=== PATIENT | female | born 1945 | race Hispanic/Latino ===

== ENCOUNTER 2020-08-03 12:23 | Inpatient (IN) | payer MEDICARE ==
[2020-08-03] VITALS (34 sets, daily range): BP systolic 92–125; BP diastolic 45–80
[~2020-08-03] VITALS: Ht 160 cm; Wt 104.0 kg
[2020-08-03 13:02] LABS: BASOPHILS % (AUTO) 0.2 % (0.0-5.0); EOSINOPHILS % (AUTO) 0.1 % (0.0-8.0); HEMATOCRIT 28.9 % (36-48); LYMPHOCYTES % (AUTO) 8.8 % (21.0-51.0); MEAN CORPUSCULAR HEMOGLOBIN 30.9 pg (27.0-33.0); MEAN CORPUSCULAR HGB CONC 31.8 g/dL (32.0-36.0); MONOCYTES % (AUTO) 7.9 % (3.0-13.0); NEUTROPHILS % (AUTO) 75.4 % (40.0-77.0); NUCLEATED RED BLOOD CELLS 1.7 % (0.0-0.19); PLATELET COUNT (AUTO) 150 K/uL (130-400); RED BLOOD CELL COUNT(AUTO) 2.98 MIL/uL (4.00-5.50); RED CELL DISTRIBUTION WIDTH 15.7 % (11.0-15.5); WHITE BLOOD COUNT (AUTO) 8.6 K/uL (4.8-10.8)
[2020-08-03 13:14] LABS: INR 1.17 (0.85-1.15); PROTHROMBIN TIME 12.3 SEC (9.6-11.6)
[2020-08-03 13:16] LABS: PARTIAL THROMBOPLASTIN TIME 27.8 SEC (26.3-35.5)
[2020-08-03 13:25] LABS: ALBUMIN 3.8 g/dL (3.5-5.0); BILIRUBIN,TOTAL 1.3 mg/dL (0.2-1.0); CREATININE 4.4 mg/dL (0.5-1.5); CRP QUANTITATIVE 44.8 mg/L (0.00-9.0); POTASSIUM 5.7 mmol/L (3.5-5.1); TOTAL PROTEIN, SERUM 6.9 g/dL (6.0-8.3); TROPONIN I 0.34 ng/mL (0.00-0.06)
[2020-08-03 13:41] LABS: B-TYPE NATRIURETIC PEPTIDE 862 pg/mL (0-100)
[2020-08-03] MEDS ORDERED: ONDANSETRON 4MG INJ ONE (14:02)
[2020-08-03] MEDS ORDERED: ZOSYN 3.375GM+NS 50ML 50 ML IV ONE (14:03)
[2020-08-03] MEDS ORDERED: MORPHINE 2 MG SYG ONE (14:03)
[2020-08-03] MEDS ORDERED: FUROSEMIDE 40MG VIAL ONE (14:03)
[2020-08-03] MEDS ORDERED: GLUCAGON 1MG KIT 1 MG ML IM PRN (15:45)
[2020-08-03] MEDS ORDERED: LACTULOSE 20 GM/30 ML UDCUP PO PRN (16:15)
[2020-08-03] MEDS ORDERED: HYDRALAZINE 20MG/ML VIAL IV PRN (16:15)
[2020-08-03] MEDS ORDERED: ONDANSETRON 4MG INJ IVP PRN (16:15)
[2020-08-03] MEDS ORDERED: DOCUSATE SODIUM 100 MG CAP PO PRN (16:15)
[2020-08-03] MEDS: INSULIN R PO SS1 SQ SCH ×2 (16:30→21:00)
[2020-08-03] MEDS ORDERED: DEXTROSE 50%-WATER 50 ML DISP.SYRIN IV SCH (17:00)
[2020-08-03] MEDS ORDERED: CACL 1GM SYG IVP SCH (17:00)
[2020-08-03] MEDS ORDERED: INSULIN HUMULIN R 100 UNIT/ML 3ML IV SCH (17:00)
[2020-08-03] MEDS ORDERED: KAYEXALATE 15GM/60ML NG SCH (17:00)
[2020-08-03 17:19] LABS: INR 1.17 (0.85-1.15); PROTHROMBIN TIME 12.3 SEC (9.6-11.6)
[2020-08-03 17:21] LABS: PARTIAL THROMBOPLASTIN TIME 28.8 SEC (26.3-35.5)
[2020-08-03] MEDS: HEPARIN 5,000 UNIT VIAL SQ SCH (17:34)
[2020-08-03] MEDS: MILRINONE-D5W 20 MG/100 ML 100 ML IV SCH (17:37)
[2020-08-03 17:55] LABS: ABG BASE EXCESS -8.5 mmol/L (-2.0-3.0); ABG HCO3 24.8 mmol/L (21.0-28.0); ABG OXYGEN SATURATION 98.2 % (95.0-99.0); ABG PCO2 95 mmHg (32-45)
[2020-08-03] MEDS ORDERED: ENOXAPARIN SODIUM 30 MG/0.3 ML SQ SCH (21:00)
[2020-08-03] MEDS: FUROSEMIDE 40MG VIAL IVP SCH (21:39)
[2020-08-03] MEDS: CARVEDILOL 3.125 MG TABLET PO SCH (21:40)
[2020-08-04] VITALS (96 sets, daily range): BP systolic 77–129; BP diastolic 38–70
[2020-08-04] MEDS: MILRINONE-D5W 20 MG/100 ML 100 ML IV SCH ×2 (01:24→13:11)
[2020-08-04] MEDS: FUROSEMIDE 40MG VIAL IVP SCH (06:06)
[2020-08-04] MEDS: HEPARIN 5,000 UNIT VIAL SQ SCH ×2 (06:07→16:49)
[2020-08-04] MEDS: LEVOTHYROXINE 50 MCG TABLET PO SCH ×2 (06:26→06:27)
[2020-08-04] MEDS: INSULIN R PO SS1 SQ SCH ×4 (07:30→21:00)
[2020-08-04 08:22] LABS: BASOPHILS % (AUTO) 0.2 % (0.0-5.0); EOSINOPHILS % (AUTO) 0.1 % (0.0-8.0); HEMATOCRIT 27.8 % (36-48); LYMPHOCYTES % (AUTO) 4.6 % (21.0-51.0); MEAN CORPUSCULAR HEMOGLOBIN 31.2 pg (27.0-33.0); MEAN CORPUSCULAR HGB CONC 31.7 g/dL (32.0-36.0); MEAN CORPUSCULAR VOLUME 98.6 fL (79-99); MONOCYTES % (AUTO) 11.1 % (3.0-13.0); NEUTROPHILS % (AUTO) 77.1 % (40.0-77.0); PLATELET COUNT (AUTO) 132 K/uL (130-400); RED BLOOD CELL COUNT(AUTO) 2.82 MIL/uL (4.00-5.50); RED CELL DISTRIBUTION WIDTH 15.3 % (11.0-15.5); WHITE BLOOD COUNT (AUTO) 9.7 K/uL (4.8-10.8)
[2020-08-04 08:54] LABS: ALBUMIN 3.4 g/dL (3.5-5.0); BILIRUBIN,TOTAL 1.2 mg/dL (0.2-1.0); CREATININE 4.7 mg/dL (0.5-1.5); POTASSIUM 5.3 mmol/L (3.5-5.1); TOTAL PROTEIN, SERUM 6.4 g/dL (6.0-8.3)
[2020-08-04] MEDS: CARVEDILOL 3.125 MG TABLET PO SCH (09:00)
[2020-08-04 09:03] LABS: ABG BASE EXCESS -1.2 mmol/L (-2.0-3.0); ABG HCO3 29.1 mmol/L (21.0-28.0); ABG OXYGEN SATURATION 93.4 % (95.0-99.0); ABG PCO2 76 mmHg (32-45)
[2020-08-04] MEDS: ACETAMINOPHEN 325 MG TAB PO PRN (10:16)
[2020-08-04] MEDS: DEXTROSE 50%-WATER 50 ML DISP.SYRIN IV PRN ×2 (12:25→16:47)
[2020-08-04] MEDS ORDERED: DEXTROSE 10%-WATER 1,000 ML IV SCH (13:45)
[2020-08-04 18:51] LABS: ABG BASE EXCESS -2.6 mmol/L (-2.0-3.0); ABG HCO3 26.5 mmol/L (21.0-28.0); ABG OXYGEN SATURATION 95.9 % (95.0-99.0); ABG PCO2 65 mmHg (32-45)
[2020-08-04] MEDS ORDERED: PHARMACY COMMUNICATION MISC SCH (19:00)
[2020-08-04] MEDS: ALBUMIN (HUMAN) 25% 100 ML IV SCH (23:34)
[2020-08-05] VITALS (72 sets, daily range): BP systolic 75–136; BP diastolic 34–110
[2020-08-05] MEDS: DEXTROSE 50%-WATER 50 ML DISP.SYRIN IV PRN ×2 (01:01→06:23)
[2020-08-05] MEDS: MILRINONE-D5W 20 MG/100 ML 100 ML IV SCH (03:24)
[2020-08-05 04:39] LABS: HEMATOCRIT 24.3 % (36-48); MEAN CORPUSCULAR HEMOGLOBIN 30.7 pg (27.0-33.0); MEAN CORPUSCULAR HGB CONC 32.5 g/dL (32.0-36.0); MEAN CORPUSCULAR VOLUME 94.6 fL (79-99); NUCLEATED RED BLOOD CELLS 1.3 % (0.0-0.19); RED BLOOD CELL COUNT(AUTO) 2.57 MIL/uL (4.00-5.50); RED CELL DISTRIBUTION WIDTH 15.6 % (11.0-15.5); WHITE BLOOD COUNT (AUTO) 9.9 K/uL (4.8-10.8)
[2020-08-05 04:49] LABS: CREATININE 5.1 mg/dL (0.5-1.5); POTASSIUM 3.9 mmol/L (3.5-5.1)
[2020-08-05] MEDS: HEPARIN 5,000 UNIT VIAL SQ SCH ×2 (05:04→16:28)
[2020-08-05] MEDS: ALBUMIN (HUMAN) 25% 100 ML IV SCH ×2 (06:24→13:43)
[2020-08-05] MEDS: LEVOTHYROXINE 50 MCG TABLET PO SCH (06:27)
[2020-08-05] MEDS: INSULIN R PO SS1 SQ SCH ×4 (07:30→21:00)
[2020-08-05] MEDS ORDERED: PHARMACY COMMUNICATION MISC SCH (10:30)
[2020-08-05] MEDS ORDERED: FURO40TA5 PO (10:52)
[2020-08-05] MEDS ORDERED: LOSA25TA41 PO (10:52)
[2020-08-05] MEDS ORDERED: LEVO-170 PO (10:52)
[2020-08-05] MEDS ORDERED: CARV25TA PO (10:52)
[2020-08-05] MEDS ORDERED: ALBU2.5V2 NEB (10:52)
[2020-08-05] MEDS ORDERED: CARV3.12 PO (10:52)
[2020-08-05] MEDS ORDERED: APIX5TAB PO (10:55)
[2020-08-05] MEDS ORDERED: INSLAN SQ ×2 (10:55)
[2020-08-05] MEDS ORDERED: GLYB5TAB8 PO (10:55)
[2020-08-05 11:11] LABS: ABG BASE EXCESS -3.5 mmol/L (-2.0-3.0); ABG HCO3 24.8 mmol/L (21.0-28.0); ABG OXYGEN SATURATION 93.6 % (95.0-99.0); ABG PCO2 58 mmHg (32-45)
[2020-08-05] MEDS: BIOTENE 44.3 ML SOLUTION MM SCH ×4 (13:02→23:06)
[2020-08-05] MEDS: ACETAMINOPHEN 325 MG TAB PO PRN (13:26)
[2020-08-05] MEDS: 0.9%NACL 1000ML 1,000 ML IV SCH (14:15)
[2020-08-05] MEDS ORDERED: 0.9% NACL 500ML IV.SOLN 500 ML IV SCH (14:15)
[2020-08-05] MEDS ORDERED: 0.9%NACL 1000ML 1,000 ML IV ONE (14:21)
[2020-08-05] MEDS: SOLU-MEDROL 40MG VIAL IVP SCH (18:43)
[2020-08-05] MEDS: CARVEDILOL 3.125 MG TABLET PO SCH (21:00)
[2020-08-05] MEDS: CHLORHEXIDINE GLUCONATE 473 ML MOUTHWASH MM SCH (23:30)
[2020-08-06] VITALS (65 sets, daily range): BP systolic 76–123; BP diastolic 30–75
[2020-08-06] MEDS: MILRINONE-D5W 20 MG/100 ML 100 ML IV SCH ×3 (01:08→22:08)
[2020-08-06] MEDS: SOLU-MEDROL 40MG VIAL IVP SCH (02:30)
[2020-08-06 04:22] LABS: HEMATOCRIT 23.1 % (36-48); MEAN CORPUSCULAR HEMOGLOBIN 31.1 pg (27.0-33.0); MEAN CORPUSCULAR HGB CONC 32.5 g/dL (32.0-36.0); MEAN CORPUSCULAR VOLUME 95.9 fL (79-99); NUCLEATED RED BLOOD CELLS 1.4 % (0.0-0.19); RED BLOOD CELL COUNT(AUTO) 2.41 MIL/uL (4.00-5.50); RED CELL DISTRIBUTION WIDTH 15.9 % (11.0-15.5); WHITE BLOOD COUNT (AUTO) 10.6 K/uL (4.8-10.8)
[2020-08-06 04:44] LABS: ALBUMIN 3.5 g/dL (3.5-5.0); BILIRUBIN,TOTAL 1.3 mg/dL (0.2-1.0); CREATININE 5.3 mg/dL (0.5-1.5); POTASSIUM 4.2 mmol/L (3.5-5.1); TOTAL PROTEIN, SERUM 6.2 g/dL (6.0-8.3)
[2020-08-06] MEDS: 0.9%NACL 1000ML 1,000 ML IV SCH ×2 (05:10→10:25)
[2020-08-06] MEDS: HEPARIN 5,000 UNIT VIAL SQ SCH ×2 (05:10→16:52)
[2020-08-06] MEDS: LEVOTHYROXINE 50 MCG TABLET PO SCH (05:11)
[2020-08-06] MEDS: BIOTENE 44.3 ML SOLUTION MM SCH ×5 (05:11→23:14)
[2020-08-06] MEDS: INSULIN R PO SS1 SQ SCH ×4 (05:12→20:30)
[2020-08-06] MEDS: CHLORHEXIDINE GLUCONATE 473 ML MOUTHWASH MM SCH ×4 (05:45→23:40)
[2020-08-06 06:57] LABS: ABG BASE EXCESS -5.1 mmol/L (-2.0-3.0); ABG HCO3 23.9 mmol/L (21.0-28.0); ABG PCO2 62 mmHg (32-45)
[2020-08-06] MEDS: CARVEDILOL 3.125 MG TABLET PO SCH ×2 (07:49→20:30)
[2020-08-06 07:59] LABS: APPEARANCE,URINE CLOUDY (CLEAR); COLOR,URINE RED (YELLOW); GLUCOSE, URINE (UA) NEGATIVE (NEGATIVE); PROTEIN,URINE >=300 mg/dL (NEGATIVE)
[2020-08-06 08:00] LABS: BILIRUBIN,URINE NEGATIVE (NEGATIVE); KETONES,URINE NEGATIVE (NEGATIVE); OCCULT BLOOD,URINE LARGE (NEGATIVE)
[2020-08-06 08:01] LABS: LEUKOCYTE ESTERASE ,URINE MODERATE (NEGATIVE)
[2020-08-06 08:24] LABS: BACTERIA,URINE Moderate /HPF (None Seen); RBC,URINE TNTC /HPF (0-1); WBC,URINE TNTC /HPF (0-1)
[2020-08-06 08:25] LABS: YEAST,URINE BUDDING Many /HPF (None Seen)
[2020-08-06 09:07] LABS: CRP QUANTITATIVE 63.4 mg/L (0.00-9.0)
[2020-08-06] MEDS: CEFTRIAXONE 1G VIAL IVP SCH (10:24)
[2020-08-06] MEDS ORDERED: HYDROCORTISONE SOD SUCCINATE 100 MG/2 ML VIAL IV SCH (14:00)
[2020-08-06] MEDS: HYDROCORTISONE SOD SUCCINATE 100 MG/2 ML VIAL IV SCH (20:29)
[2020-08-07] VITALS (38 sets, daily range): BP systolic 79–126; BP diastolic 35–79
[2020-08-07] MEDS: HEPARIN 5,000 UNIT VIAL SQ SCH ×2 (04:40→16:32)
[2020-08-07] MEDS: CHLORHEXIDINE GLUCONATE 473 ML MOUTHWASH MM SCH ×4 (05:04→23:28)
[2020-08-07 06:07] LABS: HEMATOCRIT 21.6 % (36-48); LYMPHOCYTES % (AUTO) 2.3 % (21.0-51.0); MEAN CORPUSCULAR HEMOGLOBIN 31.1 pg (27.0-33.0); MEAN CORPUSCULAR HGB CONC 32.4 g/dL (32.0-36.0); NEUTROPHILS % (AUTO) 92.6 % (40.0-77.0); NUCLEATED RED BLOOD CELLS 2.5 % (0.0-0.19); PLATELET COUNT (AUTO) 132 K/uL (130-400); RED BLOOD CELL COUNT(AUTO) 2.25 MIL/uL (4.00-5.50); RED CELL DISTRIBUTION WIDTH 15.8 % (11.0-15.5)
[2020-08-07 06:32] LABS: ALBUMIN 3.4 g/dL (3.5-5.0); BILIRUBIN,TOTAL 1.2 mg/dL (0.2-1.0); CREATININE 5.9 mg/dL (0.5-1.5); POTASSIUM 4.5 mmol/L (3.5-5.1)
[2020-08-07] MEDS: LEVOTHYROXINE 50 MCG TABLET PO SCH (06:35)
[2020-08-07] MEDS: INSULIN R PO SS1 SQ SCH ×4 (06:36→22:01)
[2020-08-07] MEDS: 0.9%NACL 1000ML 1,000 ML IV SCH ×2 (06:36→13:58)
[2020-08-07] MEDS: BIOTENE 44.3 ML SOLUTION MM SCH ×5 (06:36→23:27)
[2020-08-07 07:40] LABS: ABG BASE EXCESS -7.3 mmol/L (-2.0-3.0); ABG HCO3 21.9 mmol/L (21.0-28.0); ABG OXYGEN SATURATION 91.9 % (95.0-99.0); ABG PCO2 59 mmHg (32-45)
[2020-08-07] MEDS ORDERED: METOPROLOL TARTRATE 1 MG/ML 5ML VIAL IV PRN (09:00)
[2020-08-07] MEDS: CARVEDILOL 3.125 MG TABLET PO SCH ×2 (09:00→21:28)
[2020-08-07] MEDS: HYDROCORTISONE SOD SUCCINATE 100 MG/2 ML VIAL IV SCH ×3 (09:28→21:26)
[2020-08-07] MEDS: CEFTRIAXONE 1G VIAL IVP SCH (09:28)
[2020-08-07] MEDS: MILRINONE-D5W 20 MG/100 ML 100 ML IV SCH ×2 (09:29→22:15)
[2020-08-08] VITALS (24 sets, daily range): BP systolic 73–104; BP diastolic 34–55
[2020-08-08 03:55] LABS: HEMATOCRIT 21.3 % (36-48); MEAN CORPUSCULAR HEMOGLOBIN 30.8 pg (27.0-33.0); MEAN CORPUSCULAR HGB CONC 31.9 g/dL (32.0-36.0); MEAN CORPUSCULAR VOLUME 96.4 fL (79-99); RED BLOOD CELL COUNT(AUTO) 2.21 MIL/uL (4.00-5.50); WHITE BLOOD COUNT (AUTO) 9.8 K/uL (4.8-10.8)
[2020-08-08 04:07] LABS: CREATININE 6.2 mg/dL (0.5-1.5); POTASSIUM 4.9 mmol/L (3.5-5.1)
[2020-08-08] MEDS: HEPARIN 5,000 UNIT VIAL SQ SCH ×2 (05:25→15:20)
[2020-08-08] MEDS: CHLORHEXIDINE GLUCONATE 473 ML MOUTHWASH MM SCH ×4 (05:30→23:05)
[2020-08-08] MEDS: LEVOTHYROXINE 50 MCG TABLET PO SCH (05:30)
[2020-08-08] MEDS: BIOTENE 44.3 ML SOLUTION MM SCH ×5 (06:01→23:05)
[2020-08-08] MEDS: INSULIN R PO SS1 SQ SCH ×4 (07:30→21:00)
[2020-08-08] MEDS: CEFTRIAXONE 1G VIAL IVP SCH (09:05)
[2020-08-08] MEDS: HYDROCORTISONE SOD SUCCINATE 100 MG/2 ML VIAL IV SCH ×3 (09:05→21:14)
[2020-08-08] MEDS: CARVEDILOL 3.125 MG TABLET PO SCH ×2 (09:16→21:00)
[2020-08-08] MEDS: FUROSEMIDE 40MG VIAL IV SCH ×2 (12:51→23:04)
[2020-08-08] MEDS ORDERED: MILRINONE-D5W 20 MG/100 ML 100 ML IV SCH (22:00)
[2020-08-09] VITALS (24 sets, daily range): BP systolic 69–104; BP diastolic 35–55
[2020-08-09] MEDS: NOREPINEPHRIN 4MG/NS 250ML 250 ML IV SCH ×3 (00:29→16:45)
[2020-08-09] MEDS: HEPARIN 5,000 UNIT VIAL SQ SCH ×2 (05:30→22:39)
[2020-08-09] MEDS: CHLORHEXIDINE GLUCONATE 473 ML MOUTHWASH MM SCH ×4 (05:31→22:47)
[2020-08-09] MEDS: LEVOTHYROXINE 50 MCG TABLET PO SCH (05:32)
[2020-08-09 05:53] LABS: MEAN CORPUSCULAR HEMOGLOBIN 30.5 pg (27.0-33.0); MEAN CORPUSCULAR HGB CONC 31.7 g/dL (32.0-36.0); MEAN CORPUSCULAR VOLUME 96.2 fL (79-99); NUCLEATED RED BLOOD CELLS 4.2 % (0.0-0.19); RED BLOOD CELL COUNT(AUTO) 2.13 MIL/uL (4.00-5.50); RED CELL DISTRIBUTION WIDTH 15.9 % (11.0-15.5); WHITE BLOOD COUNT (AUTO) 10.6 K/uL (4.8-10.8)
[2020-08-09 06:06] LABS: HEMATOCRIT 20.5 % (36-48)
[2020-08-09 06:12] LABS: CREATININE 6.8 mg/dL (0.5-1.5)
[2020-08-09] MEDS: BIOTENE 44.3 ML SOLUTION MM SCH ×5 (06:50→22:46)
[2020-08-09] MEDS: INSULIN R PO SS1 SQ SCH ×4 (07:30→22:41)
[2020-08-09] MEDS ORDERED: PHENYLEPHRINE HCL 10 MG in 0.9% NACL 250ML 250 ML IV PRN (07:45)
[2020-08-09] MEDS: CARVEDILOL 3.125 MG TABLET PO SCH ×2 (09:00→21:00)
[2020-08-09] MEDS: HYDROCORTISONE SOD SUCCINATE 100 MG/2 ML VIAL IV SCH ×3 (09:43→22:39)
[2020-08-09] MEDS ORDERED: DOBUTAMINE 250MG/D5 250ML 250 ML IV ONE (11:50)
[2020-08-09] MEDS: FUROSEMIDE 40MG VIAL IV SCH (11:54)
[2020-08-09] MEDS: CEFTRIAXONE 1G VIAL IVP SCH (11:54)
[2020-08-09] MEDS ORDERED: PHENYLEPHRINE HCL 100 MG in 0.9% NACL 250ML 250 ML IV PRN (20:45)
[2020-08-09] MEDS ORDERED: NOREPINEPHRINE BITARTRATE 32 MG in 0.9% NACL 250ML 250 ML IV SCH (20:45)
[2020-08-10] VITALS (25 sets, daily range): BP systolic 0–100; BP diastolic 0–75
[2020-08-10] MEDS: FUROSEMIDE 40MG VIAL IV SCH ×2 (01:05→13:54)
[2020-08-10] MEDS: DOBUTAMINE 250MG/D5 250ML 250 ML IV SCH ×2 (03:03→20:06)
[2020-08-10] MEDS: HEPARIN 5,000 UNIT VIAL SQ SCH ×2 (04:15→16:15)
[2020-08-10] MEDS: CHLORHEXIDINE GLUCONATE 473 ML MOUTHWASH MM SCH ×3 (05:47→18:25)
[2020-08-10] MEDS: LEVOTHYROXINE 50 MCG TABLET PO SCH (06:30)
[2020-08-10] MEDS: BIOTENE 44.3 ML SOLUTION MM SCH ×4 (06:46→18:25)
[2020-08-10] MEDS: INSULIN R PO SS1 SQ SCH ×3 (07:30→16:30)
[2020-08-10] MEDS: CARVEDILOL 3.125 MG TABLET PO SCH ×2 (09:00→19:56)
[2020-08-10] MEDS: HYDROCORTISONE SOD SUCCINATE 100 MG/2 ML VIAL IV SCH ×2 (09:36→13:54)
[2020-08-10] MEDS: CEFTRIAXONE 1G VIAL IVP SCH (09:36)
[2020-08-10] MEDS ORDERED: NOREPINEPHRIN 4MG/NS 250ML 250 ML IV ONE (12:18)
== END 2020-08-10 21:05 | disposition expired | DRG 682 ==
LOC: EDH 12:23 → UNDOADMIN 13:00 → EDHIP 13:00 → UNDOADMIN 13:01 → EDHIP 13:01 → 4CH 16:15 → 2BH 16:36 → 2DH 08-07 12:03
PROVIDERS: ADMIT Internal Medicine Critical Care Medicine; ATTEND Internal Medicine Critical Care Medicine
PROC: 5A09457 Assistance with Respiratory Ventilation, 24-96 Consecutive Hours, Continuous Positive Airway Pressure (ICD-10-PCS; 2020-08-03)
PROC: 5A09457 Assistance with Respiratory Ventilation, 24-96 Consecutive Hours, Continuous Positive Airway Pressure (ICD-10-PCS; 2020-08-03)
PROC: 5A09357 Assistance with Respiratory Ventilation, Less than 24 Consecutive Hours, Continuous Positive Airway Pressure (ICD-10-PCS; principal; 2020-08-05)
PROC: 02HV33Z Insertion of Infusion Device into Superior Vena Cava, Percutaneous Approach (ICD-10-PCS; 2020-08-05)
DX: N17.9 Acute kidney failure, unspecified (principal); G93.41 Metabolic encephalopathy; J96.01 Acute respiratory failure with hypoxia; J96.02 Acute respiratory failure with hypercapnia; I50.43 Acute on chronic combined systolic (congestive) and diastolic (congestive) heart failure; I13.2 Hypertensive heart and chronic kidney disease with heart failure and with stage 5 chronic kidney disease, or end stage renal disease; I48.11 Longstanding persistent atrial fibrillation; D68.59 Other primary thrombophilia; E87.1 Hypo-osmolality and hyponatremia; I31.3 Pericardial effusion (noninflammatory); I45.2 Bifascicular block; R57.9 Shock, unspecified; Z68.41 Body mass index [BMI] 40.0-44.9, adult; I42.9 Cardiomyopathy, unspecified; N18.5 Chronic kidney disease, stage 5; E11.22 Type 2 diabetes mellitus with diabetic chronic kidney disease; D63.8 Anemia in other chronic diseases classified elsewhere; Z20.822 Contact with and (suspected) exposure to COVID-19; E11.649 Type 2 diabetes mellitus with hypoglycemia without coma; E66.01 Morbid (severe) obesity due to excess calories; E86.9 Volume depletion, unspecified; E87.5 Hyperkalemia; I25.10 Atherosclerotic heart disease of native coronary artery without angina pectoris; I25.5 Ischemic cardiomyopathy; I34.0 Nonrheumatic mitral (valve) insufficiency; I46.9 Cardiac arrest, cause unspecified; R62.7 Adult failure to thrive; Z51.5 Encounter for palliative care; E87.8 Other disorders of electrolyte and fluid balance, not elsewhere classified; Z66 Do not resuscitate; I25.2 Old myocardial infarction; Z88.8 Allergy status to other drugs, medicaments and biological substances; Z74.01 Bed confinement status; Z95.5 Presence of coronary angioplasty implant and graft; Z95.810 Presence of automatic (implantable) cardiac defibrillator
CPT/HCPCS: 36415; 36600; 71045; 80048; 80053; 81001; 82140; 82533; 82550; 82728; 82803; 82947; 82948; 83605; 83615; 83874; 83880; 84145; 84300; 84484; 85025; 85027; 85378; 85384; 85610; 85730; 86140; 86900; 86901; 87040; 87088; 87426; 93005; 93306; 93970; 94660; C1751; C1894; G0378; J0696; J1250; J1644; J1720; J1815; J1940; J2260; J2405; J2543; J2920; J3490; J7030; J7050; J7070; P9046; U0003